=== PATIENT | male | born 1940 | race Caucasian/White ===

== ENCOUNTER 2018-12-20 07:29 | Day surgery (SDC) | payer OTHER ==
[2018-12-14 15:26] VITALS: BMI 30.4
[~2018-12-20 07:29] MED LIST: methylPREDNISolone ACET (DEPO) 40 MG/1 ML VIAL IM ONE
[2018-12-20] MEDS ORDERED: oxyCODONE HCL 10 MG SUSTAINED ACTING TABLET PO ONE (07:54)
[2018-12-20] MEDS ORDERED: ACETAMINOPHEN 1000 MG/100 ML VIAL (NON FORMULARY) IVPB ONE (09:14)
[2018-12-20] MEDS ORDERED: oxyCODONE HCL 5 MG TABLET PO PRN ×2 (09:14)
[2018-12-20] MEDS ORDERED: ONDANSETRON 4 MG/2 ML VIAL IVPUSH PRN (09:14)
[2018-12-20] MEDS ORDERED: LACTATED RINGERS SOLUTION 1,000 ML IV SCH (09:15)
[2018-12-20] MEDS ORDERED: MIDAZOLAM HCL 2 MG/2 ML SINGLE DOSE VIAL ONE (09:23)
[2018-12-20] MEDS ORDERED: DEXAMETHASONE SOD PHOSPHATE/PF 10 MG/ML SDV ONE (09:23)
[2018-12-20] MEDS ORDERED: BUPIVACAINE HCL/PF (5 MG/ML) 30 ML VIAL IJ ONE (09:23)
--- NOTE | 2018-12-20 11:26 | HP ---
History & Physical Update - History History: No Change - Physical Physical: No Change - Assessment Assessment: No Change - Plan Plan: No Change
[2018-12-20] MEDS ORDERED: LIDOCAINE 1%/EPI 1:100000 (20 ML MULTI DOSE VIAL) ONE (11:35)
[2018-12-20] MEDS ORDERED: methylPREDNISolone ACET (DEPO) 40 MG/1 ML VIAL ONE (11:35)
[2018-12-20] MEDS ORDERED: THROMBIN (RECOMBINANT) 5,000 UNIT VIAL TP ONE (11:36)
[2018-12-20] MEDS ORDERED: GUM MASTIC/STORAX/MSAL/ALCOHOL 1 DRP DROPSBTL MC ONE (11:36)
[2018-12-20] MEDS ORDERED: BUPIVACAINE HCL/PF 0.5% (5MG/ML) 10 ML VIAL ONE (11:55)
[2018-12-20] MEDS ORDERED: ONDANSETRON 4 MG/2 ML VIAL ONE (11:57)
[2018-12-20] MEDS ORDERED: ceFAZolin SODIUM 1 GM VIAL ONE ×2 (11:57→12:55)
[2018-12-20] MEDS ORDERED: DEXAMETHASONE SOD PHOSPHATE 4 MG/1 ML VIAL ONE (11:57)
[2018-12-20] MEDS ORDERED: ePHEDrine SULFATE 50 MG/1 ML AMPULE ONE (12:20)
[2018-12-20] MEDS ORDERED: LIDOCAINE 1%/EPI 1:100000 (50 ML MULTI DOSE VIAL) INF ONE (12:28)
[2018-12-20] MEDS ORDERED: GELATIN SPONGE,ABSORBABLE 1 GM PACKET TP ONE (12:39)
[2018-12-20] MEDS ORDERED: THROMBIN (BOVINE) 5,000 UNIT VIAL TP ONE (12:39)
--- NOTE | 2018-12-20 14:20 | OP ---
Operative Note - Note: Operative Date: 12/20/18 (l) Pre-Operative Diagnosis: lumbar stenosis Operation: laminectomy of L4/L5 and L5/S1 with repair of durotomy with durapatch /duraseal Surgeon: Vinh Rodriguez Stock Control Supervisor: Leila Blanco Anesthesiologist/GLOST KILN PLACER: Flavio Madera Anesthesia: Spinal Estimated Blood Loss (mls): 20 Fluid Volume Replaced (mls): 1,000 Operative Report Dictated: Yes
--- NOTE | 2018-12-20 14:21 | SURG ---
Surgery Binder Roller Note Binder Roller: Leila Blanco PA-C Date of Service: 12/20/18 Diagnosis: lumbar stenosis Procedure: laminectomy of L4/L5 and L5/S1 with repair of durotomy with durapatch/duraseal I was present for the entirety of the operative procedure. For further detail, please refer to operative report. Visit type - Case Type Case Type: Scheduled - Emergency Emergency Visit: No - New patient This patient is new to me today: Yes Date on this admission: 12/20/18
[2018-12-20] MEDS ORDERED: ACETAMINOPHEN INJECTION 100 ML IVPB ONE (14:27)
[2018-12-20] MEDS ORDERED: oxyCODONE HCL 5 MG TABLET ONE (16:35)
[2018-12-20] MEDS ORDERED: oxyCODONE HCL 5 MG TABLET PO ONE (16:35)
[2018-12-20 18:41] VITALS: BP 144/86; PULSE 86; TEMP 98.1
[2018-12-20] MEDS ORDERED: oxyCODONE HCL 10 MG SUSTAINED ACTING TABLET PO SCH (22:00)
--- NOTE | 2018-12-21 09:26 | OP ---
DATE OF OPERATION: 12/20/2018 PREOPERATIVE DIAGNOSIS: Spinal stenosis at L4-5. POSTOPERATIVE DIAGNOSIS: Spinal stenosis at L4-5. PROCEDURE PERFORMED: Laminectomy, L4-5. SURGEON: Vinh Rodriguez MD CRANKSHAFT STRAIGHTENER: MUSHTAQ Harrison ESTIMATED BLOOD LOSS: 50 mL. INTRAVENOUS FLUIDS: Per Anesthesia. ANESTHESIA: Spinal/TLIP. COMPLICATIONS: None. DISPOSITION: Patient brought to the PACU in stable condition. INDICATION FOR SURGERY: The patient is a 78-year-old gentleman who has been suffering from pain from his back down his leg. X-rays and MRI were completed which noted that he had spinal stenosis at L4-5 secondary to a herniated disk. He had gone through an exhaustive course of treatment for this, which included medications, physical therapy as well as injections. Unfortunately, his pain continued to persist despite all this. At this point, risks, benefits, and alternatives were discussed, and the patient consented to surgery. DESCRIPTION OF PROCEDURE: Patient was brought to the operating room by the anesthesia staff. After appropriate patient identification was performed, spinal anesthesia was given. Appropriate anesthetic lines were placed. TLIP block was also given. Patient was able to position himself prone onto the OR table with his arms positioned to avoid bony prominences. Two needles were placed into his back to tata off the L4-5 segment. X-ray was taken to confirm this as correct. [place] were removed, and 10 mL of lidocaine with epinephrine was injected into his back at this time. His back was prepped and draped in a sterile manner. At this point, a timeout was completed. An incision was made from the top of L4 down to the bottom of L5. Dissection was carried down to the fascia. Fascia was split open at this time. Appropriate retractors were then placed in. A spinal needle was placed onto the L4 lamina to tata off the L4-5 level. X-ray was taken to confirm this as correct. Needle was removed, and the interspinous ligament at L4-5 was removed. Portions of the L4 and L5 spinous processes were removed. Portions of the L4 lamina were removed. The flavum was identified, and it was removed. The thecal sac was mobilized medially. A disk herniation was noted. It was removed. Portions of the facets were removed such that by the end of the procedure the L5 nerve root appeared to be well decompressed. All bleeding was well controlled at this time. Steroid was placed over the nerve root. FloSeal was placed over that. The fascia was closed with a No. 1 Vicryl suture. Subcutaneous tissues were closed with 2-0 Vicryl suture. Skin was closed with 3-0 Monocryl suture. Dermabond was applied. Steri-Strips were applied. A sterile dressing was applied. Patient was placed supine on the OR bed and brought to the PACU in stable condition. Rachael [id number]
--- NOTE | 2018-12-22 16:16 | PATH ---
Surgical Pathology Report Patient Name: PAMELA BERMUDEZ [facility]. Rec. #: [id number] /Age/Gender: 1940 (Age: 78) / M Account: [id number] Location: [facility] Taken: 12/20/2018 Received: 12/20/2018 Reported: 12/22/2018 Physicians: Vinh Rodriguez M.D. Specimen(s) Received DISC L4-S1 Clinical History Spinal stenosis Final Diagnosis L4-S1 DISC, LAMINECTOMY: CARTILAGE WITH DEGENERATIVE CHANGES. Electronically Signed Shu Velarde M.D. Gross Description Received in formalin labeled "L4-S1," is a 1.3 x 0.9 x 0.3 cm aggregate of carmichael fragments of fibrocartilaginous tissue. The specimen is submitted in toto in one cassette. 12/21/201812/21/2018
== END 2018-12-20 18:30 | disposition home or self-care (01) ==
LOC: FASU 07:29
PROVIDERS: ATTEND Orthopaedic Surgery Orthopaedic Surgery of the Spine
PROC: 01NB0ZZ Release Lumbar Nerve, Open Approach (ICD-10-PCS; principal; 2018-12-20 10:00)
DX: M48.061 Spinal stenosis, lumbar region without neurogenic claudication (principal)
CPT/HCPCS: 72100-TC-FY; 88304-TC; 94760; J0131